=== PATIENT | male | born 1945 | race Caucasian/White ===

== ENCOUNTER 2017-07-30 16:43 | Emergency (ER) | payer OTHER ==
[~2017-07-30] VITALS: Ht 172.7 cm; Wt 76.7 kg
[~2017-07-30 16:43] MED LIST: ASPI325T PO; ATEN25TA PO; ATOR20TA15 PO; CREO3000 PO; CYCL1TAB29 PO; D31000TA; FER-15DR3; LANTUS2P; LISI2.5T3 PO; MAGN500T4 PO; MEDR4PAK PO; MULT-135 PO; NOVOLOGP2 SQ; OMEP20TA PO; OXYC1TAB63 PO; TAMS0.4C4 PO
[2017-07-30 16:59] VITALS: BP 136/65; PULSE 73; RESP 18; TEMP 98.2; O2SAT 94
[2017-07-30] MEDS ORDERED: MAGN400T2 PO (17:29)
[2017-07-30] MEDS ORDERED: SILD1POW4 PO (17:29)
[2017-07-30] MEDS ORDERED: MULTTAB67 PO (17:29)
[2017-07-30] MEDS ORDERED: KETOROLAC TROMETHAMINE 30 MG/ML (IVP) VIAL IV PUSH ONE (17:30)
[2017-07-30 17:58] LABS: AUTOMATED NEUTROPHIL # 6.2 TH/MM3 (1.8-7.7); BASOPHIL % 0.5 % (0.0-2.0); EOSINOPHIL # 0.3 TH/MM3 (0-0.4); EOSINOPHIL % 2.6 % (0.0-4.0); HEMO FLAGS DIFF FINAL; LYMPH % 25.9 % (9.0-44.0); LYMPHOCYTE # 2.5 TH/MM3 (1.0-4.8); MEAN CORPUSCULAR HEMOGLOBIN 28.5 PG (27.0-34.0); MEAN CORPUSCULAR HGB CONC 33.1 % (32.0-36.0); MONO % 7.9 % (0.0-8.0); NEUT % 63.1 % (16.0-70.0); PLATELET COUNT 261 TH/MM3 (150-450); RED BLOOD COUNT 4.65 MIL/MM3 (4.50-5.90); RED CELL DISTRIBUTION WIDTH 13.9 % (11.6-17.2); WHITE BLOOD COUNT 9.8 TH/MM3 (4.0-11.0)
[2017-07-30 18:07] LABS: CHLORIDE 105 MEQ/L (98-107); POTASSIUM 4.7 MEQ/L (3.5-5.1); SODIUM (NA) 139 MEQ/L (136-145)
[2017-07-30 18:11] LABS: ANION GAP 9 MEQ/L (5-15); APTT (PATIENT) 29.2 SEC (24.3-30.1); BICARBONATE 25.1 MEQ/L (21.0-32.0); BLOOD UREA NITROGEN 29 MG/DL (7-18); PROTHROMBIN TIME - PATIENT 11.1 SEC (9.8-11.6)
[2017-07-30 18:14] LABS: ALT (GPT) 34 U/L (12-78); AST (GOT) 40 U/L (15-37); GLOMERULAR FILTRATION RATE 46 ML/MIN (>89)
[2017-07-30 18:16] LABS: TOTAL BILIRUBIN ADULT 0.4 MG/DL (0.2-1.0)
[2017-07-30 18:17] LABS: ALKALINE PHOSPHATASE 150 U/L (45-117)
--- NOTE | 2017-07-30 18:23 | RADRPT ---
EXAM DATE/TIME: 07/30/2017 17:46 [facility] COMPARISON: No previous studies available for comparison. INDICATIONS : Right leg pain. MEDICAL HISTORY : Chronic obstructive pulmonary disease. Gastroesophageal reflux disease. Pancreatitis. Myocardial i nfarction. Coronary artery disease. Hypercholesterolemia. Renal failure. Enlarged prostate. Arth ritis. Diabetes. Depression. Deep vein thrombosis. SURGICAL HISTORY : Tonsillectomy. Splenectomy. Cholecystectomy. Pancreatectomy. Vasectomy. Colonoscopy. ENCOUNTER: Initial ACUITY: 2 day PAIN SCORE: 7/10 LOCATION: Right leg. TECHNIQUE: Venous ultrasound of the leg was performed from the inguinal ligament to the proximal calf. Real-donald e, color Doppler and spectral tracing, compression and augmentation techniques were used. FINDINGS: There is normal compressibility of the deep venous system from the inguinal region to the proximal ca lf. No echogenic clot is seen in the lumen of the common femoral, femoral, popliteal, and posterior tibial veins. There is a normal response of the venous system to proximal and distal augmentation an d respiration. There is a 6 cm hypoechoic mass/collection associated with the medial right knee miguel on which may be hematoma or other mass process. CONCLUSION: No evidence of right leg DVT Nahum Chaudhry MD on July 30, 2017 at 18:20 Board Certified Radiologist. This report was verified electronically.
--- NOTE | 2017-07-30 18:49 | PD ---
HPI Chief Complaint: Edema Time Seen by Provider: 17:16 Travel History International Travel<30 days: No Contact w/Intl Traveler<30days: No Traveled to known affect area: No History of Present Illness HPI Patient is a 72-year-old male who comes in complaining of right knee swelling and pain for the past 3 or 4 days. He comes in because he has history of blood clots, and is worried that he might have another one. He had the blood clots while in the hospital 6 years ago, and is currently not on any blood thinners. He does not recall specific injury, but says that he often does strenuous work. He denies any chest pain. He says he has chronic shortness of breath. He denies fever or chills. PFSH Past Medical History Hx Anticoagulant Therapy: Yes (ASA 325 MG PO HS) Arthritis: Yes Asthma: No Blood Disorders: No Anxiety: Yes Depression: Yes Heart Rhythm Problems: No Cancer: No Cardiovascular Problems: Yes High Cholesterol: Yes Chemotherapy: No Chest Pain: Yes Congestive Heart Failure: No COPD: Yes Cerebrovascular Accident: No Coronary Artery Disease: Yes Diabetes: Yes (type 1) Patient Takes Glucophage: No Diminished Hearing: No Endocrine: Yes Gastrointestinal Disorders: Yes GERD: Yes Genitourinary: Yes (Prostate) Headaches: Yes Hiatal Hernia: No Hypertension: Yes Immune Disorder: No Kidney Stones: No Medical other: Yes (HX of blood clots, kidney disease) Musculoskeletal: No Neurologic: No Psychiatric: Yes Reproductive: No Respiratory: Yes (COPD, emphysema ) Integumentary: Yes (tinea corporis) Migraines: No Myocardial Infarction: Yes (1996) Pancreatitis: Yes (surgery in the past) Renal Failure: Yes (funcitoning at 53%) Seizures: No Sleep Apnea: No Ulcer: Yes Tetanus Vaccination: < 5 Years Influenza Vaccination: Yes PNEUMOCCOCAL Vaccine (Year): 2 Past Surgical History Abdominal Surgery: Yes (SPLEEN AND PANCREAS REMOVED 09/27/2011) AICD: No Arteriovenous Shunt: No Body Medical Devices: J-TUBE LEFT LOWER ABD Cardiac Surgery: No Cholecystectomy: Yes Ear Surgery: No Endocrine Surgery: No Eye Surgery: No Genitourinary Surgery: Yes (spleen & pancreas surgery in the past) Gynecologic Surgery: No Insulin Pump: No Joint Replacement: No Oral Surgery: No Pacemaker: No Thoracic Surgery: No Tonsillectomy: Yes Other Surgery: Yes (vasectomy, colonoscopy ) Social History Alcohol Use: No Tobacco Use: No Substance Use: No Allergies-Medications (Allergen,Severity, Reaction): Coded Allergies: *MDRO Multi-Drug Resistant Organism (Verified Adverse Reaction, Unknown, ) CRAB (peritoneal fluid, sputum, urine) - 10/2011 Reported Meds & Prescriptions Reported Meds & Active Scripts Active Oxycodone-Acetaminophen 5-325 mg Tab 1 Tab PO Q6HR PRN Reported Sildenafil Citrate (Sildenafil Citrate (Bulk)) 100 % Pow 100 Mg PO DIRECTED Multiple Vitamin 1 Tab 1 Tab PO DAILY Magnesium Oxide 400 Mg Tab 400 Mg PO DAILY Aspirin 325 Mg Tab 325 Mg PO DAILY Atenolol 25 Mg Tab 12.5 Mg PO DAILY Atorvastatin (Atorvastatin Calcium) 20 Mg Tab 20 Mg PO HS D3 (Cholecalciferol) 1,000 Unit Tab Creon (Pancrelipase) 3,000-9,500-15,000 Units Cap 1 Cap PO TIDPC Royal-Iron (Ferrous Sulfate) 15 Mg/Ml Alvin Novolog Inj (Insulin Aspart) 1,000 Unit/10 Ml Vial 0 SQ DIRECTED Sliding Scale as directed. Lantus Inj (Insulin Glargine) 100 Unit/Ml Inj 50 HS Lisinopril 2.5 Mg Tab 2.5 Mg PO DAILY Omeprazole 20 Mg Tab 20 Mg PO DAILY Tamsulosin (Tamsulosin HCl) 0.4 Mg Cap 0.4 Mg PO HS Review of Systems Except as stated in HPI: all other systems reviewed are Neg General / Constitutional: No: Fever, Chills HENT: No: Headaches, Lightheadedness Cardiovascular: No: Chest Pain or Discomfort Respiratory: No: Cough Gastrointestinal: No: Nausea, Vomiting Genitourinary: No: Dysuria Musculoskeletal: Positive: Edema, Pain Skin: No Rash, No Change in Pigmentation Neurologic: No: Weakness, Dizziness Physical Exam Narrative GENERAL: Awake and alert, in no acute distress. SKIN: Focused skin assessment warm/dry. No erythema or signs of infection. HEAD: Atraumatic. Normocephalic. EYES: Pupils equal and round. No scleral icterus. ENT: Mucous membranes pink and moist. NECK: Trachea midline. No JVD. CARDIOVASCULAR: Regular rate and rhythm. No murmur appreciated. RESPIRATORY: No accessory muscle use. Clear to auscultation. Breath sounds equal bilaterally. MUSCULOSKELETAL: No obvious deformities. No clubbing. No cyanosis. Swelling to the medial side of the right knee. Pain with movement of the right knee. Pedal pulses intact. NEUROLOGICAL: Awake and alert. No obvious cranial nerve deficits. Motor grossly within normal limits. Normal speech. PSYCHIATRIC: Appropriate mood and affect; insight and judgment normal. Data Data Last Documented VS Vital Signs Date Time Temp Pulse Resp B/P (MAP) Pulse Ox O2 Delivery O2 Flow Rate FiO2 07/30/17 19:00 98.2 56 16 140/71 (94) 97 Room Air Orders Orders Complete Blood Count With Diff (07/30/17 17:24) Comprehensive Metabolic Panel (07/30/17 17:24) Act Partial Throm Time (Ptt) (07/30/17 17:24) Prothrombin Time / Inr (Pt) (07/30/17 17:24) Us Leg Venous Doppler (07/30/17 ) Knee, Complete (4vws) (07/30/17 ) Ketorolac Inj (Toradol Inj) (07/30/17 17:30) Labs Laboratory Tests Test 07/30/17 17:50 White Blood Count 9.8 TH/MM3 Red Blood Count 4.65 MIL/MM3 Hemoglobin 13.2 GM/DL Hematocrit 40.0 % Mean Corpuscular Volume 86.0 FL Mean Corpuscular Hemoglobin 28.5 PG Mean Corpuscular Hemoglobin Concent 33.1 % Red Cell Distribution Width 13.9 % Platelet Count 261 TH/MM3 Mean Platelet Volume 8.4 FL Neutrophils (%) (Auto) 63.1 % Lymphocytes (%) (Auto) 25.9 % Monocytes (%) (Auto) 7.9 % Eosinophils (%) (Auto) 2.6 % Basophils (%) (Auto) 0.5 % Neutrophils # (Auto) 6.2 TH/MM3 Lymphocytes # (Auto) 2.5 TH/MM3 Monocytes # (Auto) 0.8 TH/MM3 Eosinophils # (Auto) 0.3 TH/MM3 Basophils # (Auto) 0.0 TH/MM3 CBC Comment DIFF FINAL Differential Comment Prothrombin Time 11.1 SEC Prothromb Time International Ratio 1.0 RATIO Activated Partial Thromboplast Time 29.2 SEC Blood Urea Nitrogen 29 MG/DL Creatinine 1.50 MG/DL Random Glucose 179 MG/DL Total Protein 7.5 GM/DL Albumin 3.4 GM/DL Calcium Level 9.5 MG/DL Alkaline Phosphatase 150 U/L Aspartate Amino Transf (AST/SGOT) 40 U/L Alanine Aminotransferase (ALT/SGPT) 34 U/L Total Bilirubin 0.4 MG/DL Sodium Level 139 MEQ/L Potassium Level 4.7 MEQ/L Chloride Level 105 MEQ/L Carbon Dioxide Level 25.1 MEQ/L Anion Gap 9 MEQ/L Estimat Glomerular Filtration Rate 46 ML/MIN [facility] Medical Decision Making Medical Screen Exam Complete: Yes Emergency Medical Condition: Yes Differential Diagnosis Muscle strain versus DVT versus ligamentous strain Narrative Course Patient is a 72-year-old male comes in complaining of pain and swelling to the right knee. Exam shows swelling to the medial side of the knee and pain with movement. IV established, labs sent. Labs show no acute abnormalities. Doppler ultrasound performed shows no evidence of DVT. Knee x-ray shows osteoarthritis. Patient be given an Himanshu wrap as well as a prescription for Voltaren cream. He is advised follow-up with his doctor. Advised to return to the ED as needed for any worsening symptoms. Last 24 hours Impressions Lower Extremity Ultrasound 07/30/17 0000 Signed Impressions: Service Date/Time: Sunday, July 30, 2017 17:46 - CONCLUSION: No evidence of right leg DVT Nahum Chaudhry MD Knee X-Ray 07/30/17 0000 Signed Impressions: Service Date/Time: Sunday, July 30, 2017 18:26 - CONCLUSION: 1. No acute findings. Moderate osteoarthritis with trace joint fluid. Adonay Montoya MD Diagnosis Primary Impression: Knee pain Qualified Codes: M25.561 - Pain in right knee Patient Instructions: General Instructions, Knee Pain (ED) Additional Instructions: Follow-up with her doctor. Wear the Himanshu wrap as needed for comfort. He can apply for Voltaren cream for pain relief. He can also take Tylenol or the tramadol that you have at home. Return to the ED as needed for any worsening symptoms. Scripts Diclofenac Sodium (Voltaren) 1 % Gel..gram. 4 G TOPICAL QID Y for PAIN SCALE 1 TO 10 for 7 Days Prov: Karolina Infante MD 07/30/17 Disposition: 01 DISCHARGE HOME Condition: Stable Karolina Infante MD Jul 30, 2017 18:49
--- NOTE | 2017-07-30 18:56 | RADRPT ---
EXAM DATE/TIME: 07/30/2017 18:26 [facility] COMPARISON: No previous studies available for comparison. INDICATIONS : Left knee swelling for 3 days. MEDICAL HISTORY : Chronic obstructive pulmonary disease. Gastroesophageal reflux disease. Pancreatitis. Myocardial infa rction. Coronary artery disease. Hypercholesterolemia. Renal failure. Enlarged prostate. Arthritis. D iabetes. Depression. Deep vein thrombosis. SURGICAL HISTORY : Tonsillectomy. Splenectomy. Cholecystectomy. Pancreatectomy. Vasectomy. Colonoscopy. ENCOUNTER: Initial ACUITY: 3 days PAIN SCORE: 3/10 LOCATION: Right knee. FINDINGS: No acute bony abnormality. Trace joint fluid. Vascular calcifications. Moderate osteoarthritis medial joint. CONCLUSION: 1. No acute findings. Moderate osteoarthritis with trace joint fluid. Adonay Montoya MD on July 30, 2017 at 18:53 Board Certified Radiologist. This report was verified electronically.
[2017-07-30 19:00] VITALS: BP 140/71; PULSE 56; RESP 16; TEMP 98.2; O2SAT 97
[2017-07-30] MEDS ORDERED: VOLT1GEL4 TOPICAL (19:18)
== END 2017-07-30 19:46 | disposition home or self-care (01) ==
LOC: PHED 16:43
DX: M25.561 Pain in right knee (principal); R60.0 Localized edema; R06.02 Shortness of breath; J44.9 Chronic obstructive pulmonary disease, unspecified; I25.10 Atherosclerotic heart disease of native coronary artery without angina pectoris; I10 Essential (primary) hypertension; E10.9 Type 1 diabetes mellitus without complications; K21.9 Gastro-esophageal reflux disease without esophagitis; I25.2 Old myocardial infarction; Z79.82 Long term (current) use of aspirin; Z86.718 Personal history of other venous thrombosis and embolism
CPT/HCPCS: 73564; 80053; 85025; 85610; 85730; 93971; 96374; 99285; J1885